=== PATIENT | male | born 1965 | race Hispanic/Latino ===

== ENCOUNTER 2023-05-22 08:53 | Emergency (ER) | payer SELFPAY ==
[2023-05-22 09:03] VITALS: BP 196/120; PULSE 79; RESP 16; TEMP 35.8; O2SAT 99
--- NOTE | 2023-05-22 09:03 | ED.ABDPAIN ---
HPI - Abdominal Pain General Chief Complaint: Abdominal Pain Stated Complaint: Abdominal Pain Time Seen by Provider: 05/22/23 09:03 Source: patient Mode of arrival: ambulatory Limitations: no limitations History of Present Illness HPI narrative: 58-year-old male presents with complaint abdominal pain, cramping for the past 3 weeks. Reports abdominal bloating over the past week. Reports mild nausea without vomiting. Denies changes to stools. No recent weight loss. Reports appetite is normal. Patient's blood pressure is elevated today. Has been told for the past several years that he has high blood pressure. States that he tried a medications several years ago and that it made him fatigued so he stopped it. Called his primary care office 2 days ago regarding symptoms and was told to go to the ER. Afebrile. No urinary symptoms. All systems reviewed and negative except as noted above. Related Data Allergies Allergy/AdvReac Type Severity Reaction Status Date / Time No Known Allergies Allergy Verified 05/22/23 09:46 Review of Systems Review of Systems: CONSTITUTIONAL: Denies fever, chills, or sweats. EYES: Denies visual changes, redness, or discharge. ENT: Denies rhinorrhea, congestion, sore throat, or otalgia. CARDIOVASCULAR: Denies chest pain, palpitations, or edema. RESPIRATORY: Denies cough or dyspnea. GASTROINTESTINAL: Reports abdominal pain, nausea. Denies vomiting, or diarrhea. denies constipation. GENITOURINARY: Denies dysuria or hematuria. SKIN: Denies rash or itching. MUSCULOSKELETAL: Denies back pain, joint pain, or myalgia. NEUROLOGIC: Denies headache, numbness, or weakness. PSYCHIATRIC: Denies anxiety or depression. All other systems reviewed are negative, except as documented in HPI. PMFSH Comments At time of signature, agree with nursing past medical, surgical, social and family history. There is no relevant family history pertinent to the presenting complaint. Exam Narrative: GENERAL: This is a well-nourished, well-developed patient, in no apparent distress. HEAD: normocephalic, atraumatic. EYES: PERRL. Sclera clear/white. Vision is grossly intact. EARS: External ears normal NOSE: External nose normal NECK: Neck supple, non-tender without lymphadenopathy, masses or thyromegaly. CARDIOVASCULAR: Regular rate and rhythm without murmurs, gallops, or rubs. RESPIRATORY: Clear to auscultation. Breath sounds equal bilaterally. No wheezes, rales, or rhonchi. GASTROINTESTINAL: Abdomen soft, Tenderness to epigastric left upper quadrant on palpation,nondistended. Bowel sounds are active. No hepato-splenomegaly, or palpable masses. No guarding. SKIN: warm, Dry, intact with no suspicious lesions or rash, good texture and turgor. NEURO: awake, alert, and oriented to person, place and time. There were no obvious focal neurologic abnormalities. EXTREMITIES: No joint tenderness, effusion, or edema noted. Course Course Level of Care: Express Care Visit Vital Signs Vital signs: Vital Signs Temperature 35.8 C L 05/22/23 09:03 Pulse Rate 79 05/22/23 09:03 Respiratory Rate 16 05/22/23 09:03 Blood Pressure 196/120 H 05/22/23 09:03 Pulse Oximetry 99 05/22/23 09:03 Oxygen Delivery Room Air 05/22/23 09:03 Temperature 35.8 C L 05/22/23 09:03 Pulse Rate 79 05/22/23 09:03 Respiratory Rate 16 05/22/23 09:03 Blood Pressure 196/120 H 05/22/23 09:03 Pulse Oximetry 99 05/22/23 09:03 Oxygen Delivery Room Air 05/22/23 09:03 reviewed Transfer Transfered to: [facility] Transportation: Other (private car) Transfer rationale: ABD pain, elevated BP 196/120 Accepting physician: Doni ZIMMER MDM - Abdominal Pain MDM Narrative Medical decision making narrative: patient transferred to [facility] ER for further evaluation abdominal pain. Patient's blood pressure is a significantly elevated at 196/120. He denies chest pain and shortness of breath. Patient agrees wi
== END 2023-05-22 09:22 | disposition short-term general hospital (02) ==
PROVIDERS: Emergency Provider Nurse Practitioner Family; PCP Physician Assistant
DX: R10.13 Epigastric pain (principal); R10.12 Left upper quadrant pain; I10 Essential (primary) hypertension; E78.00 Pure hypercholesterolemia, unspecified; Z85.46 Personal history of malignant neoplasm of prostate
CPT/HCPCS: 99212; G0463

== ENCOUNTER 2023-05-22 09:45 | Emergency (ER) | payer SELFPAY ==
--- NOTE | ~2023-05-22 | CT_ITS ---
Clinical Indication: Abdominal pain, chest pain CT Scan of the Chest, Abdomen, and Pelvis with Contrast: Technique: Contiguous sections were acquired throughout the chest, abdomen, and pelvis after intraven ous administration of 100 cc of Omnipaque 350. Dose reduction technique was used on this scan by marjorie bush automated exposure control and iterative reconstruction technique. The dose-length product (DL P) was 400.54 mGy-cm. Findings: There is no evidence of any significant mediastinal, hilar or axillary lymphadenopathy. The mediastin al soft tissues and vascular structures appear normal. There is no evidence of pleural or pericardial effusion. 1.4 cm left apical pulmonary nodule present, suggestive of nodular scarring, with probable focal inte rnal calcification. No other significant pulmonary abnormality seen. Hepatic cysts are present. The spleen, pancreas, gallbladder, adrenals and kidneys are within normal limits. No evidence of aortic aneurysm. No lymphadenopathy. No bowel obstruction or bowel wall thickening. There is no evidence to suggest acute appendicitis. Urinary bladder is unremarkable. Patient is status post prostatectomy. No pelvic mass seen. Impression: 1.4 cm left apical pulmonary nodule, likely nodular scarring. Status post prostatectomy. Reviewed, dictated and finalized at [facility]. Impression: 1.4 cm left apical pulmonary nodule, likely nodular scarring. Status post prostatectomy.
[2023-05-22 10:17] VITALS: BP 172/98; PULSE 79; RESP 16; TEMP 37.2; O2SAT 99
--- NOTE | 2023-05-22 10:22 | ECG_ITS ---
Measurements Intervals [place] Rate: 70 P: 72 GA: 151 QRS: 66 QRSD: 100 T: 57 QT: 401 QTc: 433 Interpretive Statements SINUS RHYTHM NORMAL ECG NO PREVIOUS ECG AVAILABLE FOR COMPARISON Electronically Signed On 05-22-2023 10:39:17 CDT by Lon Lucas D.O.
[2023-05-22 10:35] LABS: Appearance Urine Clear (Clear); Bilirubin Urine Negative (Negative); Blood Urine Negative (Negative); Color Urine Yellow (Yellow); Glucose Urine UA Negative (Negative); Ketones Urine Negative (Negative); Leukocyte Esterase Ur Negative LEU/UL (Negative); Nitrate Urine Negative (Negative); Protein Urine Negative (Negative); Specific Grav Ur 1.006 (1.001-1.035); Urobilinogen Urine 0.2 mg/dL (<2.0); pH Urine 7.5 (5.0-9.0)
[2023-05-22 10:37] LABS: Add Urine Microscopic? NO
--- NOTE | 2023-05-22 10:47 | ED.ABDPAIN ---
HPI - Abdominal Pain General Chief Complaint: Abdominal Pain Stated Complaint: abdominal pain from urgent care Time Seen by Provider: 05/22/23 10:22 History of Present Illness HPI narrative: 58-year-old male history of hypertension and prostate cancer over 10 years ago presents to the emergency room for evaluation of generalized abdominal pain and bloating for 3 weeks. Denies any nausea vomiting or diarrhea. No constipation. Has not attempted any gyye-ren-muahthd medications to alleviate his symptoms. Denies fevers. Denies dysuria Related Data Allergies Allergy/AdvReac Type Severity Reaction Status Date / Time No Known Allergies Allergy Verified 05/22/23 09:46 Review of Systems Review of Systems: CONSTITUTIONAL: Denies fever, chills, or sweats. EYES: Denies visual changes, redness, or discharge. ENT: Denies rhinorrhea, congestion, sore throat, or otalgia. CARDIOVASCULAR: Denies chest pain, palpitations, or edema. RESPIRATORY: Denies cough or dyspnea. GASTROINTESTINAL: Reports abdominal pain, and bloating GENITOURINARY: Denies dysuria or hematuria. SKIN: Denies rash or itching. MUSCULOSKELETAL: Denies back pain, joint pain, or myalgia. NEUROLOGIC: Denies headache, numbness, dizziness, or weakness. PSYCHIATRIC: Denies anxiety or depression. Exam Narrative: GENERAL: Well-appearing, well-nourished, no physical limitations, and in no acute distress. HEAD: Normocephalic, atraumatic. EYES: Conjunctivae normal, PERRLA and EOMI. CHEST: Clear to auscultation. No respiratory distress. No wheezes rales or rhonchi. HEART: Regular rate and rhythm. No murmur heard. Normal peripheral pulses. ABDOMEN: Soft, mild periumbilical tenderness, nondistended, normal active bowel sounds. BACK: No CVA tenderness EXTREMITIES: Normal range of motion. No edema. No clubbing or cyanosis SKIN: Warm, dry, no rash. No noted wounds NEURO: No focal deficits. Alert and oriented x3. MAEW. CN's II-XI intact bilaterally, normal gait PSYCH: Cooperative. Normal mood and affect. Course Vital Signs Vital signs: Vital Signs Temperature 37.2 C 05/22/23 10:17 Pulse Rate 79 05/22/23 10:17 Respiratory Rate 16 05/22/23 10:17 Blood Pressure 172/98 H 05/22/23 10:17 Pulse Oximetry 99 05/22/23 10:17 Oxygen Delivery Room Air 05/22/23 10:17 Temperature 37.2 C 05/22/23 10:17 Pulse Rate 79 05/22/23 10:17 Respiratory Rate 16 05/22/23 10:17 Blood Pressure 172/98 H 05/22/23 10:17 Pulse Oximetry 99 05/22/23 10:17 Oxygen Delivery Room Air 05/22/23 10:17 MDM - Abdominal Pain MDM Narrative Medical decision making narrative: 58-year-old male presented emergency room for evaluation of periumbilical abdominal pain. Described it as a sharp stabbing pain that was worse when he laid down. Work-up was unremarkable. Patient was given a GI cocktail stated he was able to achieve resolution of symptoms. Patient likely experiencing GERD. Lab Data 05/22/23 11:15 05/22/23 11:15 Labs: Lab Results 05/22/23 05/22/23 Range/Units 10:29 11:15 WBC 8.0 (4.5-10.0) K/mm3 RBC 4.56 L (4.6-6.20) M/mm3 Hgb 14.4 (14.0-18.0) g/dL Hct 42.0 (42.0-52.0) % MCV 92.1 (80-100) fl MCH 31.6 (26-34) pg MCHC 34.3 (32-36) g/dl RDW 12.6 (11.5-14.5) % Plt Count 259 (150-375) k/mm3 MPV 10.1 (7.4-10.4) fl Immature Gran % (Auto) 0.2 (0-0.5) % Neut % (Auto) 65.3 (45.5-73.1) % Lymph % (Auto) 23.5 (18.3-44.2) % Forrest % (Auto) 8.5 (2.6-8.5) % Eos % (Auto) 1.4 (0-4.4) % Baso % (Auto) 1.1 (0.2-1.2) % Lymph # (Auto) 1.88 (0.9-3.2) K/mm3 [place] # (Auto) 0.7 H (0.1-0.6) K/mm3 Eos # (Auto) 0.1 (0-0.3) K/mm3 Baso # (Auto) 0.1 (0.0-0.1) K/mm3 Abs Immat Gran (auto) 0.02 (0.00-0.031) K/mm3 Absolute Neuts (auto) 5.2 (1.3-6.7) K/mm3 Absolute Nucleated RBC 0.0 (0.0-0.012) K/mm3 Nucleated RBC % 0.0 (0.0-0.2) % Sodium 138 (137-145) mmol/L
[2023-05-22] MEDS: SODIUM CHLORIDE 0.9% IV 1,000 ML 999 ML IV CONT (11:14)
[2023-05-22 11:22] LABS: Basophils Absolute Auto 0.1 K/mm3 (0.0-0.1); Basophils Percent Auto 1.1 % (0.2-1.2); Eosinophils Absolute Auto 0.1 K/mm3 (0-0.3); Eosinophils Percent Auto 1.4 % (0-4.4); Hemoglobin 14.4 g/dL (14.0-18.0); Immature Granulocyte Absolute 0.02 K/mm3 (0.00-0.031); Immature Granulocyte Percent A 0.2 % (0-0.5); Lymphocytes Absolute Auto 1.88 K/mm3 (0.9-3.2); Lymphocytes Percent Auto 23.5 % (18.3-44.2); Mean Corpuscular HGB Conc 34.3 g/dl (32-36); Mean Corpuscular Hemoglobin 31.6 pg (26-34); Mean Corpuscular Volume 92.1 fl (80-100); Mean Platelet Volume 10.1 fl (7.4-10.4); Monocytes Absolute Auto 0.7 K/mm3 (0.1-0.6); Monocytes Percent Auto 8.5 % (2.6-8.5); Neutrophils Absolute Auto 5.2 K/mm3 (1.3-6.7); Neutrophils Percent Auto 65.3 % (45.5-73.1); Platelet Count Result 259 k/mm3 (150-375); Red Blood Count 4.56 M/mm3 (4.6-6.20); Red Cell Distribution Width 12.6 % (11.5-14.5)
[2023-05-22 11:32] LABS: Alanine Aminotransferase 22 U/L (6-50); Albumin Level 4.2 g/dL (3.5-5.1); Alkaline Phosphatase 118 U/L (38-126); Anion Gap 5 mmol/L (8-16); Aspartate Amino Transferase 26 U/L (17-59); Bilirubin,Total 0.4 mg/dL (0.2-1.3); Blood Urea Nitrogen 9 mg/dL (9-20); Calcium 8.8 mg/dL (8.4-10.2); Carbon Dioxide 28 mmol/L (22-30); Chloride 105 mmol/L (98-107); Estimated CRCL calculation 84 ml/min; Estimated Glomerular Filt Rate > 60; Glucose 100 mg/dL (65-110); Lipase 40 U/L (23-300); Potassium 4.2 mmol/L (3.4-5.0); Sodium 138 mmol/L (137-145)
[2023-05-22] MEDS: BELLADONNA ALK/PHENOB ELIX 10 ML, MAG HYDROX/ALUMINUM HYD/SIMETH 30 ML, LIDOCAINE HCL 2... PO (12:28)
[2023-05-22 12:30] VITALS: BP 149/80; PULSE 78; RESP 17; O2SAT 100
== END 2023-05-22 12:59 | disposition home or self-care (01) ==
PROVIDERS: Emergency Provider Nurse Practitioner Family; PCP Physician Assistant
DX: K21.9 Gastro-esophageal reflux disease without esophagitis (principal); I10 Essential (primary) hypertension; Z85.46 Personal history of malignant neoplasm of prostate; R91.1 Solitary pulmonary nodule; Z90.79 Acquired absence of other genital organ(s)
CPT/HCPCS: 36415; 71260; 74177; 80053; 81003; 83690; 85025; 93005; 96360; 99284; A9270; J7030; Q9967